=== PATIENT | female | born 1960 | race Caucasian/White ===

== ENCOUNTER → 2020-10-21 | Outpatient (CLI) | payer MEDICAID ==
--- NOTE | 2020-10-27 11:20 | MM ---
Reason for exam: screening (asymptomatic). History: Patient is postmenopausal and has history of other cancer at age 37. Physical Findings: A clinical breast exam by your physician is recommended on an annual basis and results should be correlated with mammographic findings. MG 3D Screening Mammo W/Cad Bilateral CC and MLO view(s) were taken. No prior studies available for comparison. The breast tissue is heterogeneously dense. This may lower the sensitivity of mammography. Left upper outer quadrant circumscribed mass is typical of a benign intramammary lymph node. Stability can be demonstrated in 6 months. ASSESSMENT: Probably benign, BI-RAD 3 RECOMMENDATION: Follow-up diagnostic mammogram of the left breast in 6 months.
== END | disposition home or self-care (01) ==
LOC: EDBD 14:22 → RADMAMWWP 14:22
PROVIDERS: ATTEND Obstetrics & Gynecology Obstetrics
DX: Z12.31 Encounter for screening mammogram for malignant neoplasm of breast (principal)
CPT/HCPCS: 77063; 77067

== ENCOUNTER → 2023-11-11 | Outpatient (CLI) | payer MEDICAID ==
--- NOTE | 2023-11-15 08:41 | MM ---
Reason for Exam: Screening (asymptomatic). Last mammogram was performed 3 year(s) and 1 month(s) ago. Patient History: Menarche at age 14. First Full-Term at age 26. Hysterectomy at age 53. Postmenopausal. Other cancer, age 37. Risk Values: Annabella 5 year model risk: 1.3%. NCI Lifetime model risk: 6.4%. Prior Study Comparison: 10/21/2020 Bilateral Screening Mammogram, [facility]. Tissue Density: The breast tissue is heterogeneously dense. This may lower the sensitivity of mammography. Findings: Analyzed By CAD. Chronic nodularity left breast. There is no suspicious group of microcalcifications or new suspicious mass in either breast. Overall Assessment: Benign, BI-RAD 2 Management: Screening Mammogram of both breasts in 1 year. . Patient should continue monthly self-breast exams. A clinical breast exam by your physician is recommended on an annual basis. This exam should not preclude additional follow-up of suspicious palpable abnormalities. Note on Annabella scores and lifetime risk: 1. A Annabella score greater than 3% is considered moderate risk. If this is the case, consider specialist referral to assess eligibility for a risk reducing agent. 2. If overall lifetime risk for the development of breast cancer is 20% or higher, the patient may qualify for future screening with alternating mammogram and breast MRI. Electronically signed and approved by: Malcolm Nicholas M.D. Radiologist
== END | disposition home or self-care (01) ==
LOC: RADMAMWWP 15:03
PROVIDERS: ATTEND Family Medicine
DX: Z12.31 Encounter for screening mammogram for malignant neoplasm of breast (principal); Z78.0 Asymptomatic menopausal state
CPT/HCPCS: 77063; 77067